=== PATIENT | female | born 1955 | race Caucasian/White ===

== ENCOUNTER → 2018-02-20 10:20 | Outpatient (CLI) | payer OTHER, SELFPAY ==
--- NOTE | 2018-02-20 10:22 | BI_ITS ---
MAMMOGRAPHY - BILATERAL SCREENING 3-D AYESHA SYNTHESIS REASON FOR EXAM: Female, 62 years old. Bilateral Screening 3-D tomosynthesis PERTINENT HISTORY: No significant family history. TECHNIQUE: 2-D mammograms and 3-D Ayesha synthesis of the breast (s) were performed. CAD was performed. COMPARISON: January 30, 2017. FINDINGS: The breast composition is heterogeneously dense that can obscure small breast masses. There is a subcentimeter nodular asymmetry within the superficial anterior outer left breast on the CC view positioned 4.3 cm from the nipple base. This finding probably lies within a region of density in the upper breast on the left MLO view. Recommend further evaluation with focal compression of the anterior left upper outer breast on CC and MLO views. Sonographic characterization may also be needed. BI/SCREENING MAMM (CAD), BILAT IMPRESSION: Left breast asymmetry as above. ASSESSMENT CATEGORY: BIRADS Category 0: Incomplete. Need additional imaging evaluation as above. A letter regarding these results will be sent to the patient by the facility within 30 days. FOLLOW UP RECOMMENDATION: Yearly follow up mammogram recommended. (A) Approximately 10% of breast cancers are not detected by mammography. A normal mammogram should not delay biopsy of a clinically suspicious abnormality. Electronically Signed: Jose Guadalupe Castillo MD at 13:57 EDT , Service support ,
== END ==
PROVIDERS: Family Provider Family Medicine; PCP Family Medicine; Visit Provider Family Medicine
DX: Z12.31 Encounter for screening mammogram for malignant neoplasm of breast (principal)
CPT/HCPCS: 77063; 77067

== ENCOUNTER → 2018-02-22 14:08 | Outpatient (CLI) | payer OTHER, SELFPAY ==
--- NOTE | 2018-02-22 14:10 | BI_ITS ---
Procedure: Mammographic focal compression of the left upper lateral breast on MLO and CC views. INDICATION: 1 cm, ovoid, hypoechoic nodule in the left breast 2:00 position 3 cm from the nipple identified on screening mammography performed February 20, 2018. TECHNIQUE: Digital mammography. Focal compression of the left upper outer breast on MLO and CC views. CAD was performed. FINDINGS: There is a 1 cm, well-circumscribed nodule within the left upper lateral breast. Sonographic characterization of this finding indicated a probably benign finding. BI/DIAG MAMM W/CAD, UNILAT IMPRESSION: Probably benign nodule in the left breast 2:00 position. ACR BIRADS assessment category 3-probably benign finding. Recommendation: 6 month short interval unilateral left breast mammographic and sonographic follow-up to document stability. Electronically Signed: Jose Guadalupe Castillo MD at 8:00 EDT , Service support ,
--- NOTE | 2018-02-22 14:11 | US_ITS ---
STUDY: ULTRASOUND BREAST - LEFT REASON FOR EXAM: Female, 62 years old. Abnormal screening mammography. Mammography performed February 20, 2018 demonstrating a subcentimeter nodule within the superficial/anterior upper lateral left breast. TECHNIQUE: Axial and longitudinal images of the LEFT breast were performed with a high resolution ultrasound transducer. COMPARISON: September 25, 2013. FINDINGS: LEFT Breast: There is a 0.7 x 1.0 x 0.5 cm, ovoid hypoechoic and isoechoic nodule in the left breast 2:00 position identified 3 cm from the nipple. There is no posterior enhancement. There is no posterior shadowing. This finding correlates with the mammographic finding. This finding is avascular. This finding is wider than it is tall. The margins appear microlobulated but distinct. US/Breast Limited Unilateral IMPRESSION: Probably benign finding within the left breast. ASSESSMENT CATEGORY: BIRADS Category 3: Probably Benign - Short-Interval Follow-up Suggested. A letter regarding these results will be sent to the patient by the facility within 30 days. Recommendation: Unilateral, left breast, six-month short interval mammographic and sonographic follow-up. Electronically Signed: Jose Guadalupe Castillo MD at 16:18 EDT , Service support ,
== END ==
PROVIDERS: Family Provider Family Medicine; PCP Family Medicine; Visit Provider Family Medicine
DX: R92.8 Other abnormal and inconclusive findings on diagnostic imaging of breast (principal)
CPT/HCPCS: 76642; 77065

== ENCOUNTER → 2018-06-25 16:16 | Outpatient (CLI) | payer MEDICARE, OTHER, SELFPAY | PROVIDERS: Family Provider Family Medicine; PCP Family Medicine; Visit Provider Family Medicine | DX: M25.561 Pain in right knee (principal) | CPT/HCPCS: 73564 ==

== ENCOUNTER 2018-10-28 11:47 | Observation (INO) | payer MEDICARE, OTHER, SELFPAY ==
[2018-10-28] VITALS (10 sets, daily range): BP systolic 138–207; BP diastolic 72–98; PULSE 64–89; RESP 14–18; TEMP 36.8–37.2; O2SAT 95–100; BMI 28.2; BMI 28.0
--- NOTE | 2018-10-28 12:26 | RAD_ITS ---
STUDY: X-RAY CHEST REASON FOR EXAM: Female, 63 years old. Dizziness. TECHNIQUE: Single frontal view of the chest. COMPARISON: 05/10/2017. FINDINGS: The lungs are clear and expanded. There is no demonstrated pleural abnormality. Normal size heart. Normal mediastinum and sri. Normal visualized pulmonary arteries. Normal visualized aortic arch and descending thoracic aorta. Normal visualized thoracic spine. Normal visualized ribs, clavicles, and shoulders. There is no demonstrated abnormality of the visualized soft tissue structures of the upper abdomen. RAD/Chest 1 View (Portable) IMPRESSION: Normal x-ray examination of the chest. Electronically Signed: See Desir MD at 14:21 EST , Service support ,
--- NOTE | 2018-10-28 12:26 | CT_ITS ---
STUDY: CT BRAIN WITHOUT CONTRAST REASON FOR EXAM: Female, 63 years old. Dizziness. Right facial numbness RADIATION DOSAGE (If Supplied By Facility): CTDIvol = ( 44.99 ) mGy, DLP = ( 762.36 ) mGycm TECHNIQUE: Transaxial CT imaging of the brain was performed without administration of intravenous contrast material. Individualized dose optimization techniques were used for this CT. COMPARISON: None. FINDINGS: Normal soft tissue structures. Normal calvarium. Normal size ventricles and extra-axial spaces for the patient's age. Normal white matter tracts of the cerebral hemispheres. Normal basal ganglia and thalami. Normal brainstem. Normal cerebellum. There is no intracranial hemorrhage. There are no findings of an acute ischemic infarction. Normal visualized paranasal sinuses. CT/Brain/Head without Contrast IMPRESSION: Normal unenhanced CT scan of the brain. Electronically Signed: See Desir MD at 14:35 EST , Service support ,
--- NOTE | 2018-10-28 12:26 | EKG12_ITS ---
Test Reason : DIZZINESS Blood Pressure : / mmHG Vent. Rate : 081 BPM Atrial Rate : 081 BPM P-R Int : 146 ms QRS Dur : 086 ms QT Int : 372 ms P-R-T Axes : 026 -46 019 degrees QTc Int : 432 ms Normal sinus rhythm Left axis deviation Poor R wave progression Abnormal ECG Confirmed by RED TORRES, DEIRDRE ([id number]), deputy editor in chief TOD ARRIAGA ([id number]) on 10/31/2018 2:27:04 PM Referred By: MARY Confirmed By:DEIRDRE MOON MD
[2018-10-28 12:42] LABS: Absolute Lymphocyte Count 2.09 X10^3/ul (0.83-4.51); Absolute Neutrophil Count 3.2 X10^3/uL (2.0-7.7); Basophil# 0.03 X10^3/uL; Basophil% 0.5 % (0-1); Eosinophil# 0.25 X10^3/uL; Eosinophils% 4.2 % (0-5); Hemoglobin 13.5 g/dl (12.0-15.0); Lymphocyte # 2.09 X10^3/ul (4.0); Lymphocyte % 34.7 % (19-41); Mean Corp Hgb Conc 33.8 g/gl (32-36); Mean Corpuscular Hgb 32.9 pg (27.0-32.0); Mean Corpuscular Volume 97.6 fL (81-99); Mean Platelet Vol. 10.9 fl (6.2-12.0); Monocyte% 6.6 % (0-10); Neutrophil # 3.23 X10^3/uL (2.7-7.7); Neutrophil % 53.7 % (47-70); POSITIVE COUNT NO; POSITIVE DIFFERENTIAL NO; POSITIVE MORPHOLOGY NO; Platelet Count 230 K/mm3 (150-450); RBC Distribution Width CV 11.9 % (11.6-14.6); RBC Distribution Width SD 41.4 fl (35.1-43.9)
[2018-10-28 12:50] LABS: ALB/GLOB Ratio 1.4 RATIO (0.9-2.4); AST(SGOT) 24 U/L (15-37); Alanine Aminotransfer ALT/SGPT 36 U/L (13-56); Albumin, Serum 4.4 g/dL (3.2-5.0); Alkaline Phosphatase 81 U/L (45-117); Anion Gap 9 (5-15); BUN 22 mg/dL (7-18); BUN/Creat Ratio 35.9 RATIO (10-20); Chloride 106 mmol/L (98-107); Creatinine, Serum 0.61 mg/dL (0.55-1.02); EST Glomerular Filtration Rate 104 mL/min (>60); Est Glom Filt Rate - Afr Amer 126 mL/min (>60); Estimated Creatinine Clearance 82.74 ml/min; Globulin 3.1 g/dL (2.2-4.2); Glucose 97 mg/dL (74-106); Potassium 3.4 mmol/L (3.5-5.1); Protein, Total 7.5 g/dL (6.4-8.2); Sodium Level 139 mmol/L (136-145)
--- NOTE | 2018-10-28 13:58 | ED.DCSUM_ITS ---
- ER Visit Summary Date of Service: 10/28/18 Chief Complaint: Dizziness, face numbness History of Present Illness: The patient is a 63 F with dizziness that she describes of just being off and somewhat off balance that started while she was in congregation now she feels numb in the right side of the face. No weakness, no vision changes no speech difficulties. No obvious vertigo. She does not feel lightheaded. Physical Examination: Not appear in acute distress. Moist mucous membranes, no obvious facial deformity No C-spine tenderness supple neck. Regular rate and rhythm without any obvious murmurs Clear lungs bilaterally speaking in full sentences without any obvious respiratory distress Abdomen soft and nontender no guarding or rebound Moves all extremities without any difficulty or pain. Skin does not show any obvious rashes or lesions, no trauma. Alert oriented ?3. She does have subjective decreased sensation of the right side of the face. She has no facial droop. Otherwise cranial nerves are intact. NIH stroke scale is 1 for sensory deficit. No cerebellar abnormalities on exam Emergency Department Course and Treatment: Patient has dizziness which is nonspecific however she does have some sensory deficit of the face, because of this NIH stroke scale is 1. Patient's ABCD 2 score is 4, therefore I will admit for further neurological diagnostic test. Admit stable condition. Disposition: Admitted in stable condition Impression: TIA This note was generated with [employer] dictation software. It may contain incorrect words, spelling, and punctuation that were not noted in review of the chart prior to signing ED Disposition - Plan for ED Patient: Chief Complaint: Dizziness Referrals: Silvano Mathews MD [Primary Care Provider] -
--- NOTE | 2018-10-28 15:37 | PCM.HP.STD ---
Problem List (1) Hypertensive urgency Status: Acute (2) TIA (transient ischemic attack) Status: Acute (3) Hypertension Status: Chronic History of Present Illness Date of Admission: 10/28/18 Chief Complaint: Dizziness, right face tingling. The patient is a 63 year old F with past medical history as mentioned above presented to the emergency room because of dizziness and right facial numbness and tingling. This morning, she was at spiritism, felt dizzy and lightheaded and she went home. After she arrived at home, she started having numbness on the right side of her face, continued to be dizzy, associated with nausea and headache, and without aggravating or relieving factors. Headache described as throbbing headache, in the occipital region, associated with nausea and without aggravating or relieving factors. She denied blurred vision or slurred speech. She denied focal arm or leg weakness. She denied chest pain or shortness of breath. In the emergency department, her blood pressure was highly elevated, maximum was 207/98, other vital signs are stable. Blood pressure came down to around 170 systolic without treatment. Her routine blood work was remarkable for potassium of 3.4, otherwise normal. LFT was normal. EKG revealed sinus rhythm, normal [place] interval, normal QRS, normal QTC and no evidence of acute ischemic changes. Troponin was negative. Chest x-ray showed no acute findings. CT scan brain showed no acute infarct or hemorrhage. She is being admitted for TIA and hypertensive urgency. Past Medical History Past Medical History (Chronic Problems): Chronic Problems Hypertension (Chronic) Allergies Iodinated Contrast- Oral and IV Dye [Iodinated Contrast Media - IV Dye] Allergy (Verified 10/28/18 11:51) Hives Penicillins Allergy (Verified 10/28/18 11:51) Hives Home Medications: Ambulatory Orders Medication Instructions Recorded Lisinopril [Zestril] 5 mg PO DAILY 11/04/13 Multivitamins,Therapeutic 1 tablet PO DAILY 11/04/13 [Multivitamin] Cholecalciferol (Vitamin D3) 2,000 unit PO DAILY 10/28/18 [Vitamin D3] Naproxen [Naprosyn] 500 mg PO DAILY 10/28/18 Surgical History: hysterectomy, - - D&C. Psychiatric History: No pertinent psych hx [employer] History: No pertinent [employer] history Lives: Spouse/ Significant Other Smoking Status: Never smoker Alcohol: Occasional Drugs: None - *Family History Maternal History Items: No pertinent history Paternal History Items: No pertinent history Review of Systems Constitutional: Denies: Anorexia, Chills, Fever, Weakness Eyes: Denies: Blurred vision, Double vision, Drainage, Redness HEENT: Denies: Difficulty Hearing, Ear Pain, Eye Pain, Nasal Congestion, Sore Throat Cardiovascular: Reports: Light Headedness. Denies: Chest Pain, Chest Pressure, Chest Tightness, Palpitations, Syncope Respiratory: Denies: Cough, Pleuritic Pain, Shortness of Breath, Sputum production, Wheezing Gastrointestinal: Reports: Nausea. Denies: Abdominal Pain, Constipation, Diarrhea, Vomiting Genitourinary: Denies: Dysuria, Frequency, Hematuria Musculoskeletal: Denies: Arm Pain, Back Pain, Foot Pain Skin: Denies: Dryness, Rash Neurological: Reports: Headaches, Numbness, Tingling. Denies: Balance problems, Blurred vision, Change in Speech, Slurred speech, Confusion, Focal weakness Psychiatric: Denies: Anxiety, Depression Endocrine: Denies: Change in Body Habitus, Polydipsia VTE Information - Inpt Only VTE Present on Admission: No VTE Mechan Device Prophylaxis: None VTE Pharm Prophylaxis ordered?: Yes Patient Problems: Active and Suspected Problems Hypertensive urgency (Acute) TIA (transient ischemic attack) (Acute) - Physical Exam General: Alert, Oriented x3, Cooperative, No apparent distress HEENT: Atraumatic, PERRLA, EOMI, Normocephalic Oral: Moist Mucosa, No Gingival or Mucosal Lesions/ Ulcerations Neck: Supple, No JVD, Trachea Midline, Thyroid Normal Size and Texture Lungs: Clear to auscultation, Normal air movement, No rhonchi, No wheeze, No rales Cardiovascular: Regular rate, Regular Rhythm, Normal S1, Normal S2, No murmurs, PMI Normal Abdomen: Bowel Sounds Present, Soft, Non Tender, Non-Distended, No Hepato-splenomegaly Extremities: No clubbing, No cyanosis, No edema Skin: No rashes, No breakdown Lymphatic: No Cervical, Supraclavicular, or Inguinal Adenopathy Neurological: Cranial nerves II-XII grossly intact, Motor Exam 5/5 strength throughout, Sensory exam intact to light touch and pain Psych/Mental Status: Normal Affect, Appropriate, Alert and oriented to time, place, person, mood and affect Vital Signs Temp Pulse Resp BP Pulse Ox 98.3 F 75 15 185/89 H 95 10/28/18 11:48 10/28/18 15:29 10/28/18 15:29 10/28/18 15:29 10/28/18 13:53 Oxygen Delivery Method Room Air Weight: 169 lb 12.095 oz Body Mass Index (BMI) 28.2 Laboratory Tests Past 24 Hrs 10/28/18 10/28/18 11:54 11:54 WBC 6.0 RBC 4.10 L Hgb 13.5 Hct 40.0 MCV 97.6 MCH 32.9 H MCHC 33.8 RDW 11.9 RDW Differential 41.4 Plt Count 230 MPV 10.9 Immature Gran % (Auto) 0.300 Neut % (Auto) 53.7 Lymph % (Auto) 34.7 [place] % (Auto) 6.6 Eos % (Auto) 4.2 Baso % (Auto) 0.5 Absolute Neuts (auto) 3.2 Absolute Lymphs (auto) 2.09 Total Counted Not Reportable Sodium 139 Potassium 3.4 L Chloride 106 Carbon Dioxide 24.0 Anion Gap 9 BUN 22 H Creatinine 0.61 Estim Creat Clear Calc 82.74 Est GFR (MDRD) Af Amer 126 Est GFR (MDRD) Non-Af 104 BUN/Creatinine Ratio 35.9 H Glucose 97 Calcium 9.0 Total Bilirubin 0.50 AST 24 ALT 36 Alkaline Phosphatase 81 Troponin I < 0.015 Total Protein 7.5 Albumin 4.4 Globulin 3.1 Albumin/Globulin Ratio 1.4 Clinical Impression(s) from Imaging Studies Brain CT 10/28/18 12:26 IMPRESSION: Normal unenhanced CT scan of the brain. Electronically Signed: eSe Desir MD at 14:35 EST , Service support , Chest X-Ray 10/28/18 12:26 IMPRESSION: Normal x-ray examination of the chest. Electronically Signed: See Desir MD at 14:21 EST , Service support , Assessment/Plan All Active Problems Hypertensive urgency (Acute) TIA (transient ischemic attack) (Acute) This is a 63 years old female patient presented to the ED because of dizziness and right facial numbness and tingling and she is being admitted for TIA as well as hypertensive urgency. #1 right facial paresthesia/dizziness/TIA: Initial CT scan brain showed no acute infarct or hemorrhage. She has no focal deficit on physical exam. Blood pressure is elevated. EKG revealed normal sinus rhythm, no cardiac arrhythmias or acute ischemic changes. Plan: Admit to PCU for observation, cardiac monitoring, NIH stroke scale, MRI brain, 2D echocardiogram, bilateral carotid Doppler, fasting lipid profile, start baby aspirin, Lipitor, goal blood pressure is around 160/90, Tylenol as needed, K Dur 60 mg x1 for slightly low potassium, PT OT evaluation and treatment. #2 hypertensive urgency: Upon arrival to ER, blood pressure was 207/98. Came down to around 170 systolic without treatment. Patient states that usually, her blood pressure under control. More than 10 years ago, she was informed that she has mild renal artery stenosis but she underwent for further workup and she was informed that she does not have renal artery stenosis. Plan: Goal blood pressure is around 160/90, increase lisinopril to 20 mg p.o. daily, start IV hydralazine as needed. #3 hypertension: Plan as above, increase lisinopril to 20 mg p.o. daily, IV hydralazine as needed. #4 DVT prophylaxis: Subcu Lovenox. This note was generated with [employer] dictation software. It may contain incorrect words, spelling, and punctuation that were not noted in checking the note before signing. Code Visit OBSV E&M: 94449 Initial observation care L3
--- NOTE | 2018-10-28 15:41 | HP.PCM_ITS ---
Problem List (1) Hypertensive urgency Status: Acute (2) TIA (transient ischemic attack) Status: Acute (3) Hypertension Status: Chronic History of Present Illness Date of Admission: 10/28/18 Chief Complaint: Dizziness, right face tingling. The patient is a 63 year old F with past medical history as mentioned above presented to the emergency room because of dizziness and right facial numbness and tingling. This morning, she was at judaism, felt dizzy and lightheaded and she went home. After she arrived at home, she started having numbness on the right side of her face, continued to be dizzy, associated with nausea and headache, and without aggravating or relieving factors. Headache described as throbbing headache, in the occipital region, associated with nausea and without aggravating or relieving factors. She denied blurred vision or slurred speech. She denied focal arm or leg weakness. She denied chest pain or shortness of breath. In the emergency department, her blood pressure was highly elevated, maximum was 207/98, other vital signs are stable. Blood pressure came down to around 170 systolic without treatment. Her routine blood work was remarkable for potassium of 3.4, otherwise normal. LFT was normal. EKG revealed sinus rhythm, normal [place] interval, normal QRS, normal QTC and no evidence of acute ischemic changes. Troponin was negative. Chest x-ray showed no acute findings. CT scan brain showed no acute infarct or hemorrhage. She is being admitted for TIA and hypertensive urgency. Past Medical History Past Medical History (Chronic Problems): Chronic Problems Hypertension (Chronic) Allergies Iodinated Contrast- Oral and IV Dye [Iodinated Contrast Media - IV Dye] Allergy (Verified 10/28/18 11:51) Hives Penicillins Allergy (Verified 10/28/18 11:51) Hives Home Medications: Ambulatory Orders Medication Instructions Recorded Lisinopril [Zestril] 5 mg PO DAILY 11/04/13 Multivitamins,Therapeutic 1 tablet PO DAILY 11/04/13 [Multivitamin] Cholecalciferol (Vitamin D3) 2,000 unit PO DAILY 10/28/18 [Vitamin D3] Naproxen [Naprosyn] 500 mg PO DAILY 10/28/18 Surgical History: hysterectomy, - - D&C. Psychiatric History: No pertinent psych hx LONG TERM ACUTE CARE REGISTERED NURSE History: No pertinent LONG TERM ACUTE CARE REGISTERED NURSE history Lives: Spouse/ Significant Other Smoking Status: Never smoker Alcohol: Occasional Drugs: None - *Family History Maternal History Items: No pertinent history Paternal History Items: No pertinent history Review of Systems Constitutional: Denies: Anorexia, Chills, Fever, Weakness Eyes: Denies: Blurred vision, Double vision, Drainage, Redness HEENT: Denies: Difficulty Hearing, Ear Pain, Eye Pain, Nasal Congestion, Sore Throat Cardiovascular: Reports: Light Headedness. Denies: Chest Pain, Chest Pressure, Chest Tightness, Palpitations, Syncope Respiratory: Denies: Cough, Pleuritic Pain, Shortness of Breath, Sputum production, Wheezing Gastrointestinal: Reports: Nausea. Denies: Abdominal Pain, Constipation, Diarrhea, Vomiting Genitourinary: Denies: Dysuria, Frequency, Hematuria Musculoskeletal: Denies: Arm Pain, Back Pain, Foot Pain Skin: Denies: Dryness, Rash Neurological: Reports: Headaches, Numbness, Tingling. Denies: Balance problems, Blurred vision, Change in Speech, Slurred speech, Confusion, Focal weakness Psychiatric: Denies: Anxiety, Depression Endocrine: Denies: Change in Body Habitus, Polydipsia VTE Information - Inpt Only VTE Present on Admission: No VTE Mechan Device Prophylaxis: None VTE Pharm Prophylaxis ordered?: Yes Patient Problems: Active and Suspected Problems Hypertensive urgency (Acute) TIA (transient ischemic attack) (Acute) - Physical Exam General: Alert, Oriented x3, Cooperative, No apparent distress HEENT: Atraumatic, PERRLA, EOMI, Normocephalic Oral: Moist Mucosa, No Gingival or Mucosal Lesions/ Ulcerations Neck: Supple, No JVD, Trachea Midline, Thyroid Normal Size and Texture Lungs: Clear to auscultation, Normal air movement, No rhonchi, No wheeze, No rales Cardiovascular: Regular rate, Regular Rhythm, Normal S1, Normal S2, No murmurs, PMI Normal Abdomen: Bowel Sounds Present, Soft, Non Tender, Non-Distended, No Hepato- splenomegaly Extremities: No clubbing, No cyanosis, No edema Skin: No rashes, No breakdown Lymphatic: No Cervical, Supraclavicular, or Inguinal Adenopathy Neurological: Cranial nerves II-XII grossly intact, Motor Exam 5/5 strength throughout, Sensory exam intact to light touch and pain Psych/Mental Status: Normal Affect, Appropriate, Alert and oriented to time, place, person, mood and affect Vital Signs Temp Pulse Resp BP Pulse Ox 98.3 F 75 15 185/89 H 95 10/28/18 11:48 10/28/18 15:29 10/28/18 15:29 10/28/18 15:29 10/28/18 13:53 Oxygen Delivery Method Room Air Weight: 169 lb 12.095 oz Body Mass Index (BMI) 28.2 Laboratory Tests Past 24 Hrs 10/28/18 10/28/18 11:54 11:54 WBC 6.0 RBC 4.10 L Hgb 13.5 Hct 40.0 MCV 97.6 MCH 32.9 H MCHC 33.8 RDW 11.9 RDW Differential 41.4 Plt Count 230 MPV 10.9 Immature Gran % (Auto) 0.300 Neut % (Auto) 53.7 Lymph % (Auto) 34.7 [place] % (Auto) 6.6 Eos % (Auto) 4.2 Baso % (Auto) 0.5 Absolute Neuts (auto) 3.2 Absolute Lymphs (auto) 2.09 Total Counted Not Reportable Sodium 139 Potassium 3.4 L Chloride 106 Carbon Dioxide 24.0 Anion Gap 9 BUN 22 H Creatinine 0.61 Estim Creat Clear Calc 82.74 Est GFR (MDRD) Af Amer 126 Est GFR (MDRD) Non-Af 104 BUN/Creatinine Ratio 35.9 H Glucose 97 Calcium 9.0 Total Bilirubin 0.50 AST 24 ALT 36 Alkaline Phosphatase 81 Troponin I < 0.015 Total Protein 7.5 Albumin 4.4 Globulin 3.1 Albumin/Globulin Ratio 1.4 Clinical Impression(s) from Imaging Studies Brain CT 10/28/18 12:26 IMPRESSION: Normal unenhanced CT scan of the brain. Electronically Signed: See Desir MD at 14:35 EST , Service support , Chest X-Ray 10/28/18 12:26 IMPRESSION: Normal x-ray examination of the chest. Electronically Signed: See Desir MD at 14:21 EST , Service support , Assessment/Plan All Active Problems Hypertensive urgency (Acute) TIA (transient ischemic attack) (Acute) This is a 63 years old female patient presented to the ED because of dizziness and right facial numbness and tingling and she is being admitted for TIA as well as hypertensive urgency. #1 right facial paresthesia/dizziness/TIA: Initial CT scan brain showed no acute infarct or hemorrhage. She has no focal deficit on physical exam. Blood pressure is elevated. EKG revealed normal sinus rhythm, no cardiac arrhythmias or acute ischemic changes. Plan: Admit to PCU for observation, cardiac monitoring, NIH stroke scale, MRI brain, 2D echocardiogram, bilateral carotid Doppler, fasting lipid profile, start baby aspirin, Lipitor, goal blood pressure is around 160/90, Tylenol as needed, K Dur 60 mg x1 for slightly low potassium, PT OT evaluation and treatment. #2 hypertensive urgency: Upon arrival to ER, blood pressure was 207/98. Came down to around 170 systolic without treatment. Patient states that usually, her blood pressure under control. More than 10 years ago, she was informed that she has mild renal artery stenosis but she underwent for further workup and she was informed that she does not have renal artery stenosis. Plan: Goal blood pressure is around 160/90, increase lisinopril to 20 mg p.o. daily, start IV hydralazine as needed. #3 hypertension: Plan as above, increase lisinopril to 20 mg p.o. daily, IV hydralazine as needed. #4 DVT prophylaxis: Subcu Lovenox. This note was generated with [employer] dictation software. It may contain incorrect words, spelling, and punctuation that were not noted in checking the note before signing. Code Visit OBSV E&M: 31789 Initial observation care L3
--- NOTE | 2018-10-28 16:35 | CDU_ITS ---
Reason For Study: TIA Rt. Velocities/BP Lt. Velocities/BP Prox CCA 83/13 cm/sec. Prox CCA 97/21 cm/sec. Mid CCA 76/17 cm/sec. Mid CCA 94/19 cm/sec. Dist CCA 71/17 cm/sec. Dist CCA 90/18 cm/sec. Prox ICA 59/19 cm/sec. Prox ICA 76/20 cm/sec. Mid ICA 93/26 cm/sec. Mid ICA 87/26 cm/sec. Dist ICA 89/24 cm/sec. Dist ICA 72/21 cm/sec. Rt. ICA/CCA = 1.22. Lt. ICA/CCA = 0.93. Prox ECA 99/8 cm/sec. Prox ECA 174/14 cm/sec. Rt. Vert. 59/17 cm/sec. Lt. Vert. 70/12 cm/sec. Right Extracranial There is intimal thickening but no significant atherosclerotic plaque noted in the right common carotid artery. There is heterogeneous, irregular atherosclerotic plaque noted in the right internal carotid artery. There is intimal thickening but no significant atherosclerotic plaque noted in the right external carotid artery. Antegrade flow is noted in the right vertebral artery. Left Extracranial There is heterogeneous, irregular atherosclerotic plaque noted in the left common carotid artery. There is heterogeneous, smooth atherosclerotic plaque noted in the left internal carotid artery. There is intimal thickening but no significant atherosclerotic plaque noted in the left external carotid artery. Antegrade flow is noted in the left vertebral artery. Procedure Carotid Duplex 22100. Exam performed portable in patient room. 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 Moderate disease left external carotid Patent and antegrade vertebrals bilaterally Ordering Physician: Ashelfah, Ghasem Referring Physician: Jorgito Mathews Performed By: Cande Stewart, PAULA, RVT
--- NOTE | 2018-10-28 16:35 | MRI_ITS ---
STUDY: MRI BRAIN WITHOUT CONTRAST REASON FOR EXAM: Female, 63 years old. Dizziness. Right facial numbness and tingling. TECHNIQUE: Standardized multiplanar fat and water weighted pulse sequences were obtained. COMPARISON: CT head without contrast 10/28/2018. FINDINGS: Normal size of the ventricles and extra-axial spaces for the patient's age. Normal white matter tracts of the supratentorial brain. Normal bilateral basal ganglia. Normal thalami. There is no extra-axial fluid accumulation. Normal flow voids within the major intracranial circulation suggesting patency by spin echo criteria. Normal sella turcica, pituitary gland, infundibular stalk, optic chiasm and hypothalamus. Normal tectal plate and pineal gland. Normal midbrain, roxane and medulla. Normal cerebellum. Normal basal cisterns. Normal bilateral temporal bones. Normal bilateral internal auditory canals. No demonstrated orbital abnormality, within the constraints of a routine brain study. Normal visualized paranasal sinuses. Normal calvarium and skull base. Normal visualized soft tissue structures. Normal visualized upper cervical spine. MRI/Brain without Contrast IMPRESSION: Normal unenhanced MRI of the brain. Electronically Signed: Suraj Conroy MD at 9:02 EST , Service support ,
--- NOTE | 2018-10-28 16:35 | ECHOD_ITS ---
Reason For Study: TIA/CVA Procedure This was a 2D Doppler, Color Flow transthoracic echocardiogram. The exam was of adequate technical quality. Exam performed portable in patient room. Left Ventricle Normal LV size. Left ventricular systolic function is normal. The estimated ejection fraction is 65 %. Diastolic function is indeterminate. No regional wall motion abnormalities noted. Right Ventricle Normal RV size. Normal systolic function. Atria Normal left atrium. Normal right atrium. No doppler evidence for ASD. Mitral Valve There is no mitral annular calcification. Normal mitral valve. Trivial mitral valve insufficiency. Tricuspid Valve Normal tricuspid valve. Trivial tricuspid valve insufficiency. Right ventricular systolic pressure estimated to be 26 mmHg. Aortic Valve Trisinus/trileaflet aortic valve. Normal aortic valve. Mild (1+) aortic valve insufficiency. Pulmonic Valve The pulmonic valve is not well visualized. Trivial pulmonic valve insufficiency. Great Vessels Normal sized aortic root. Pericardium/Pleural No pericardial effusion. Medication Performed a rapid injection of agitated mix of 9 cc saline and 1cc air to assess for atrial septal defect. MMode/2D Measurements & Calculations LVIDd: 4.1 cm IVSd: 0.98 cm Ao root diam: 3.3 cm LVIDs: 2.2 cm LVPWd: 0.82 cm LA dimension: 3.5 cm RVDd: 3.3 cm FS: 45.2 % LAV(MOD-bp): 61.3 ml LA A4 area: 17.5 cm2 RA A4 area: 14.4 cm2 LAV(MOD-bp) Indexed: 33.8 ml/m2 LAV(MOD-sp2): 57.2 ml LAV(MOD-sp4): 54.5 ml Time Measurements MV dec time: 0.20 sec Doppler Measurements & Calculations MV E max hoang: 70.6 cm/sec Lat Peak E' Hoang: 8.5 cm/sec Med Peak E' Hoang: 6.3 cm/sec MV A max hoang: 94.9 cm/sec E/E' lat: 8.3 E/E' med: 11.2 MV E/A: 0.74 MV V2 max: 115.6 cm/sec MV P1/2t max hoang: 94.4 cm/sec Ao V2 max: 119.9 cm/sec MV max P.3 mmHg MV P1/2t: 70.6 msec Ao max P.8 mmHg MV V2 mean: 55.1 cm/sec MV dec slope: 391.6 cm/sec2 MV mean P.5 mmHg MV V2 VTI: 27.9 cm MVA(P1/2t): 3.1 cm2 AI max hoang: 489.8 cm/sec LV V1 max: 118.4 cm/sec PA V2 max: 66.4 cm/sec AI max P.0 mmHg LV V1 max P.6 mmHg AI dec slope: 302.0 cm/sec2 AI P1/2t: 475.1 msec PI dec slope: 90.4 cm/sec2 TR max hoang: 239.3 cm/sec TR max P.9 mmHg Interpretation Summary Left ventricular systolic function is normal. The estimated ejection fraction is 65 %. Trivial mitral valve insufficiency. Trivial tricuspid valve insufficiency. Mild (1+) aortic valve insufficiency. Trivial pulmonic valve insufficiency. Right ventricular systolic pressure estimated to be 26 mmHg. Diastolic function is indeterminate. Ordering Physician: Norberto Stockton Referring Physician: Jorgito Mathews MD Performed By: Odilon Young RCS
[2018-10-28] MEDS: 0.9% Normal Saline 1,000 ML 75 ML IV (17:44)
[2018-10-28] MEDS: 0.9% NaCl Peripheral Flush Adult/Peds IV (17:48)
[2018-10-28] MEDS: Acetaminophen 325 MG Tablet 650 MG PO (18:48)
[2018-10-28] MEDS: Atorvastatin Calcium 80 MG Tablet PO (21:13)
[2018-10-29] VITALS (8 sets, daily range): BP systolic 104–141; BP diastolic 60–73; PULSE 57–93; RESP 14–18; TEMP 36.6–37; O2SAT 95–99; BMI 28.0
[2018-10-29 05:46] LABS: Cholesterol 237 mg/dL (200); High Density Lipoprotein 70 mg/dL; Triglycerides 124 mg/dL; Very Low Density Lipoprotein 25 mg/dL (5-40)
[2018-10-29] MEDS: Aspirin 81 MG TAB.CHEW PO (09:17)
[2018-10-29] MEDS: Lisinopril 20 MG Tablet PO (09:17)
[2018-10-29] MEDS: Enoxaparin 40 MG/0.4 ML Syringe SC (09:17)
[2018-10-29] MEDS: Acetaminophen 325 MG Tablet 650 MG PO (09:17)
--- NOTE | 2018-10-29 18:21 | DCINST_ITS ---
- Discharge Diagnoses Current Active Problems: Current Active and Chronic Problems Hypertensive urgency (Acute) TIA (transient ischemic attack) (Acute) You will use the following diet at home:: Cardiac - low fat, low salt Your food should be the consistency of: Regular Your liquids should be the consistency of: Regular/Thin Discharge Activity: Return to Normal Activity Call your doctor if you observe: Fever of 101 or Higher, Numbness or Tingling, Shortness of breath, Dizziness, Fainting spells, Chest pain, - - any unilateral numbness, weakness, trouble swallowing, Instructions: What Is a TIA?, Taking Aspirin for Atherosclerosis Additional Instructions: 1. You had a TIA. The MRI was negative for a stroke and the symptoms have completely resolved. The Ultrasound of the heart, called and Echocardiogram was normal. The heart monitor showed no abnormalities of rhythm. 2. You bad cholesterol, called LDL is 142. When you have had any kind of and ischemic event the recommendations are to keep the LDL < 70. You have been started on a lipid lowering agent called Lipitor. You will need to have a lipid panel and a liver panel rechecked in 6 weeks. If you develop severe muscle pain call Dr. Mathews for advice on stopping or continuing the Lipitor. 3. You should take aspirin 81 mg daily. This helps prevent the platelets in the blood from clumping and clogging up an artery. 4. The Lisinopril at admission was increased to 20 mg but, the BP normally goes up with a TIA or a stroke to help increase the blood flow to the brain. I do not think you need 20 mg but I did change the dose to 10 mg once daily. Allergies/Adverse Reactions: Allergies Iodinated Contrast- Oral and IV Dye [Iodinated Contrast Media - IV Dye] Allergy (Verified 10/28/18 11:51) Hives Penicillins Allergy (Verified 10/28/18 11:51) Hives Medications to take at Discharge Multivitamins,Therapeutic [Multivitamin] 1 tablet PO DAILY 11/04/13 Cholecalciferol (Vitamin D3) [Vitamin D3] 2,000 unit PO DAILY 10/28/18 Naproxen [Naprosyn] 500 mg PO DAILY 10/28/18 Aspirin [Aspirin, Baby] 81 mg PO DAILY@0800 tab.chew 10/29/18 Atorvastatin Calcium [Lipitor] 40 mg PO QHS #30 tablet 10/29/18 Lisinopril [Zestril] 10 mg PO DAILY #30 tab 10/29/18 The following prescriptions were given: Atorvastatin Calcium [Lipitor] 40 mg PO QHS #30 tablet Primary Care Physician: Silvano Mathews MD [Primary Care Provider] - Please follow up with your Primary Care Physician in: has an appt this week Test Results: Test results from this visit will be discussed in further detail at your follow- up appointment, if applicable. Proposed Discharge Date: 10/29/18
--- NOTE | 2018-10-29 18:24 | PCM.DC.SUM ---
Discharge Date and Diagnosis Date of Admission: 10/28/18 Date of Discharge: 10/29/18 - Primary Discharge Diagnosis Active and Suspected Problems TIA (transient ischemic attack) (Acute) Hypertensive urgency (Acute) vs autoregulation for cerebral ischemic event - Secondary Discharge Diagnosis Chronic Problems Hypertension (Chronic) Dyslipidemia Hospital Course and Treatment Imaging Results: Clinical Impression(s) from Imaging Studies Brain CT 10/28/18 12:26 IMPRESSION: Normal unenhanced CT scan of the brain. Electronically Signed: See Desir MD at 14:35 EST , Service support , Chest X-Ray 10/28/18 12:26 IMPRESSION: Normal x-ray examination of the chest. Electronically Signed: See Desir MD at 14:21 EST , Service support , Brain MRI 10/28/18 16:35 IMPRESSION: Normal unenhanced MRI of the brain. Electronically Signed: Suraj Conroy MD at 9:02 EST , Service support , Laboratory Tests 10/29/18 10/28/18 10/28/18 Range/Units 05:00 11:54 11:54 WBC 6.0 (4.4-11.0) K/mm3 RBC 4.10 L (4.2-5.4) M/mm3 Hgb 13.5 (12.0-15.0) g/dl Hct 40.0 (37-47) % MCV 97.6 (81-99) fL MCH 32.9 H (27.0-32.0) pg MCHC 33.8 (32-36) g/gl RDW 11.9 (11.6-14.6) % RDW Differential 41.4 (35.1-43.9) fl Plt Count 230 (150-450) K/mm3 MPV 10.9 (6.2-12.0) fl Immature Gran % (Auto) 0.300 (0.0-0.9) % Neut % (Auto) 53.7 (47-70) % Lymph % (Auto) 34.7 (19-41) % [place] % (Auto) 6.6 (0-10) % Eos % (Auto) 4.2 (0-5) % Baso % (Auto) 0.5 (0-1) % Absolute Neuts (auto) 3.2 (2.0-7.7) X10^3/uL Absolute Lymphs (auto) 2.09 (0.83-4.51) X10^3/ul Total Counted Not Reportable Sodium 139 (136-145) mmol/L Potassium 3.4 L (3.5-5.1) mmol/L Chloride 106 (98-107) mmol/L Carbon Dioxide 24.0 (21.0-32.0) mmol/L Anion Gap 9 (5-15) BUN 22 H (7-18) mg/dL Creatinine 0.61 (0.55-1.02) mg/dL Estim Creat Clear Calc 82.74 ml/min Est GFR (MDRD) Af Amer 126 (>60) mL/min Est GFR (MDRD) Non-Af 104 (>60) mL/min BUN/Creatinine Ratio 35.9 H (10-20) RATIO Glucose 97 (74-106) mg/dL Calcium 9.0 (8.5-10.1) mg/dL Total Bilirubin 0.50 (0.20-1.00) mg/dL AST 24 (15-37) U/L ALT 36 (13-56) U/L Alkaline Phosphatase 81 (45-117) U/L Troponin I < 0.015 (<0.045) ng/mL Total Protein 7.5 (6.4-8.2) g/dL Albumin 4.4 (3.2-5.0) g/dL Globulin 3.1 (2.2-4.2) g/dL Albumin/Globulin Ratio 1.4 (0.9-2.4) RATIO Triglycerides 124 ( - 199) mg/dL Cholesterol 237 H (200) mg/dL LDL Cholesterol 142 H (0-130) mg/dL VLDL Cholesterol 25 (5-40) mg/dL HDL Cholesterol 70 (40 - ) mg/dL None Operations: None Procedures: 2-D Echocardiogram - Normal left ventricular systolic function with no wall motion abnormalities and an estimated ejection fraction of 65%. No significant valvular heart disease. Right ventricular systolic pressure was estimated to be 26 and diastolic function was indeterminate., - - Carotid ultrasound showed moderate plaque at the proximal right external carotid with minimal smooth plaque at the proximal right internal carotid with less than 50% stenosis. The left carotid bulb and proximal internal carotid on the left had less than 50% stenosis. There was moderate disease in the left external carotid and there was patent and antegrade vertebrals bilaterally. Summary of Care Provided: The patient is a 63 year old F with a PMH of hypertension who presented to the emergency department at [facility] on 10/28/2018 complaining of dizziness and right facial numbness and tingling. This was associated with nausea and headache. She denies any focal arm or leg weakness and had no slurred speech. She denied chest pain and shortness of breath. Blood pressure in the emergency room was markedly elevated at 207/98 but the other vital signs were unremarkable. Systolic blood pressure came down to 170 without treatment. Lab work was significant for potassium of 3.4 but was otherwise unremarkable. An EKG showed normal sinus rhythm with no evidence of acute ischemic changes. Troponin was within normal limits. Chest x-ray showed no acute findings. CT brain showed no acute infarct or hemorrhage. She was admitted for observation with a diagnosis of TIA and hypertensive urgency. MRI of the brain was normal. Carotid duplex showed moderate calcific plaque at the proximal right external carotid and minimal smooth plaque at the proximal right internal carotid with less than 50% stenosis. There was minimal calcific plaque with shadowing in the left carotid bulb and proximal internal carotid with less than 50% stenosis. There was moderate disease in the left external carotid artery. Vertebral arteries were patent and antegrade. Echocardiogram showed normal left ventricular systolic function with an estimated ejection fraction of 65%. There was no significant valvular heart disease in the right ventricular systolic pressure was estimated at 26. Monitoring on telemetry showed normal sinus rhythm with no significant ectopy and particularly no atrial fibrillation. Total cholesterol was 237 with an LDL of 142 and an HDL of 70. She was discharged home with a prescription for atorvastatin 40 mg nightly and will follow up with Dr. Vega in the office on 11/01/2018. PHYSICAL EXAM: GENERAL: alert, oriented X 3, Cooperative, NAD ORAL: moist mucosa, no mucosal lesions NECK: No JVD, supple, trachea midline LUNGS: CTA, symmetric chest expansion HEART: RRR, Normal S1 and S2, no rub, no gallop ABDOMEN: soft, NT, ND, BS present, no guarding with palpation EXTREMITIES: no edema, no cyanosis, no calf tenderness SKIN: No rashes, no breakdown NEUROLOGIC: no focal neurologic deficits PSYCH: appropriate, normal affect, pleasant This note was generated with [employer] dictation software. It may contain incorrect words, spelling, and punctuation that were not noted in checking the note before signing. - Physical Exam Vital Signs Temp Pulse Resp BP Pulse Ox 98.3 F 75 18 120/69 97 10/29/18 17:10 10/29/18 17:10 10/29/18 17:10 10/29/18 17:10 10/29/18 17:10 Oxygen Delivery Method Room Air Weight: 163 lb 5.8 oz Body Mass Index (BMI) 28.0 Intake and Output for Last 24 Hours 10/27/18 10/28/18 10/29/18 23:59 23:59 23:59 Intake Total 1096.1 / 1096.1 1390 / 1390 Balance 1096.1 / 1096.1 1390 / 1390 Laboratory Tests Past 24 Hrs 10/29/18 05:00 Triglycerides 124 Cholesterol 237 H LDL Cholesterol 142 H VLDL Cholesterol 25 HDL Cholesterol 70 Discharge Activity: Return to Normal Activity Call your doctor if you observe: Fever of 101 or Higher, Numbness or Tingling, Shortness of breath, Dizziness, Fainting spells, Chest pain, - - any unilateral numbness, weakness, trouble swallowing, Home Medications: Medications to take at Discharge Multivitamins,Therapeutic [Multivitamin] 1 tablet PO DAILY 11/04/13 Cholecalciferol (Vitamin D3) [Vitamin D3] 2,000 unit PO DAILY 10/28/18 Naproxen [Naprosyn] 500 mg PO DAILY 10/28/18 Aspirin [Aspirin, Baby] 81 mg PO DAILY@0800 tab.chew 10/29/18 Atorvastatin Calcium [Lipitor] 40 mg PO QHS #30 tablet 10/29/18 Lisinopril [Zestril] 10 mg PO DAILY #30 tab 10/29/18 Following Prescrptions Were Given to Patient: Atorvastatin Calcium [Lipitor] 40 mg PO QHS #30 tablet Primary Care Physician: Silvano Mathews MD [Primary Care Provider] - Please follow up with your Primary Care Physician in: has an appt this week Patient Instructions: What Is a TIA?, Taking Aspirin for Atherosclerosis Disposition: Home Minutes spent on discharge:: 30 Patient Condition:: Good Medical Necessity - Tobacco Use Smoking Status: Never smoker Meaningful Use Info Meaningful Use Diagnoses (Choose all that apply): None applicable Code Visit OBSV E&M: 66323 Observation care discharge
--- NOTE | 2018-10-29 18:29 | DS.PCM_ITS ---
Discharge Date and Diagnosis Date of Admission: 10/28/18 Date of Discharge: 10/29/18 - Primary Discharge Diagnosis Active and Suspected Problems TIA (transient ischemic attack) (Acute) Hypertensive urgency (Acute) vs autoregulation for cerebral ischemic event - Secondary Discharge Diagnosis Chronic Problems Hypertension (Chronic) Dyslipidemia Hospital Course and Treatment Imaging Results: Clinical Impression(s) from Imaging Studies Brain CT 10/28/18 12:26 IMPRESSION: Normal unenhanced CT scan of the brain. Electronically Signed: See Desir MD at 14:35 EST , Service support , Chest X-Ray 10/28/18 12:26 IMPRESSION: Normal x-ray examination of the chest. Electronically Signed: See Desir MD at 14:21 EST , Service support , Brain MRI 10/28/18 16:35 IMPRESSION: Normal unenhanced MRI of the brain. Electronically Signed: Suraj Conroy MD at 9:02 EST , Service support , Laboratory Tests 10/29/18 10/28/18 10/28/18 Range/Units 05:00 11:54 11:54 WBC 6.0 (4.4-11.0) K/mm3 RBC 4.10 L (4.2-5.4) M/mm3 Hgb 13.5 (12.0-15.0) g/dl Hct 40.0 (37-47) % MCV 97.6 (81-99) fL MCH 32.9 H (27.0-32.0) pg MCHC 33.8 (32-36) g/gl RDW 11.9 (11.6-14.6) % RDW Differential 41.4 (35.1-43.9) fl Plt Count 230 (150-450) K/mm3 MPV 10.9 (6.2-12.0) fl Immature Gran % (Auto) 0.300 (0.0-0.9) % Neut % (Auto) 53.7 (47-70) % Lymph % (Auto) 34.7 (19-41) % [place] % (Auto) 6.6 (0-10) % Eos % (Auto) 4.2 (0-5) % Baso % (Auto) 0.5 (0-1) % Absolute Neuts (auto) 3.2 (2.0-7.7) X10^3/uL Absolute Lymphs (auto) 2.09 (0.83-4.51) X10^3/ul Total Counted Not Reportable Sodium 139 (136-145) mmol/L Potassium 3.4 L (3.5-5.1) mmol/L Chloride 106 (98-107) mmol/L Carbon Dioxide 24.0 (21.0-32.0) mmol/L Anion Gap 9 (5-15) BUN 22 H (7-18) mg/dL Creatinine 0.61 (0.55-1.02) mg/dL Estim Creat Clear Calc 82.74 ml/min Est GFR (MDRD) Af Amer 126 (>60) mL/min Est GFR (MDRD) Non-Af 104 (>60) mL/min BUN/Creatinine Ratio 35.9 H (10-20) RATIO Glucose 97 (74-106) mg/dL Calcium 9.0 (8.5-10.1) mg/dL Total Bilirubin 0.50 (0.20-1.00) mg/dL AST 24 (15-37) U/L ALT 36 (13-56) U/L Alkaline Phosphatase 81 (45-117) U/L Troponin I < 0.015 (<0.045) ng/mL Total Protein 7.5 (6.4-8.2) g/dL Albumin 4.4 (3.2-5.0) g/dL Globulin 3.1 (2.2-4.2) g/dL Albumin/Globulin Ratio 1.4 (0.9-2.4) RATIO Triglycerides 124 ( - 199) mg/dL Cholesterol 237 H (200) mg/dL LDL Cholesterol 142 H (0-130) mg/dL VLDL Cholesterol 25 (5-40) mg/dL HDL Cholesterol 70 (40 - ) mg/dL None Operations: None Procedures: 2-D Echocardiogram - Normal left ventricular systolic function with no wall motion abnormalities and an estimated ejection fraction of 65%. No significant valvular heart disease. Right ventricular systolic pressure was estimated to be 26 and diastolic function was indeterminate., - - Carotid ultrasound showed moderate plaque at the proximal right external carotid with minimal smooth plaque at the proximal right internal carotid with less than 50% stenosis. The left carotid bulb and proximal internal carotid on the left had less than 50% stenosis. There was moderate disease in the left external carotid and there was patent and antegrade vertebrals bilaterally. Summary of Care Provided: The patient is a 63 year old F with a PMH of hypertension who presented to the emergency department at [facility] on 10/28/2018 complaining of dizziness and right facial numbness and tingling. This was associated with nausea and headache. She denies any focal arm or leg weakness and had no slurred speech. She denied chest pain and shortness of breath. Blood pressure in the emergency room was markedly elevated at 207/98 but the other vital signs were unremarkable. Systolic blood pressure came down to 170 without treatment. Lab work was significant for potassium of 3.4 but was otherwise unremarkable. An EKG showed normal sinus rhythm with no evidence of acute ischemic changes. Troponin was within normal limits. Chest x-ray showed no acute findings. CT brain showed no acute infarct or hemorrhage. She was admitted for observation with a diagnosis of TIA and hypertensive urgency. MRI of the brain was normal. Carotid duplex showed moderate calcific plaque at the proximal right external carotid and minimal smooth plaque at the proximal right internal carotid with less than 50% stenosis. There was minimal calcific plaque with shadowing in the left carotid bulb and proximal internal carotid with less than 50% stenosis. There was moderate disease in the left external carotid artery. Vertebral arteries were patent and antegrade. Echocardiogram showed normal left ventricular systolic function with an estimated ejection fraction of 65%. There was no significant valvular heart disease in the right ventricular systolic pressure was estimated at 26. Monitoring on telemetry showed normal sinus rhythm with no significant ectopy and particularly no atrial fibrillation. Total cholesterol was 237 with an LDL of 142 and an HDL of 70. She was discharged home with a prescription for atorvastatin 40 mg nightly and will follow up with Dr. Vega in the office on 11/01/2018. PHYSICAL EXAM: GENERAL: alert, oriented X 3, Cooperative, NAD ORAL: moist mucosa, no mucosal lesions NECK: No JVD, supple, trachea midline LUNGS: CTA, symmetric chest expansion HEART: RRR, Normal S1 and S2, no rub, no gallop ABDOMEN: soft, NT, ND, BS present, no guarding with palpation EXTREMITIES: no edema, no cyanosis, no calf tenderness SKIN: No rashes, no breakdown NEUROLOGIC: no focal neurologic deficits PSYCH: appropriate, normal affect, pleasant This note was generated with [employer] dictation software. It may contain incorrect words, spelling, and punctuation that were not noted in checking the note before signing. - Physical Exam Vital Signs Temp Pulse Resp BP Pulse Ox 98.3 F 75 18 120/69 97 10/29/18 17:10 10/29/18 17:10 10/29/18 17:10 10/29/18 17:10 10/29/18 17:10 Oxygen Delivery Method Room Air Weight: 163 lb 5.8 oz Body Mass Index (BMI) 28.0 Intake and Output for Last 24 Hours 10/27/18 10/28/18 10/29/18 23:59 23:59 23:59 Intake Total 1096.1 / 1096.1 1390 / 1390 Balance 1096.1 / 1096.1 1390 / 1390 Laboratory Tests Past 24 Hrs 10/29/18 05:00 Triglycerides 124 Cholesterol 237 H LDL Cholesterol 142 H VLDL Cholesterol 25 HDL Cholesterol 70 Discharge Activity: Return to Normal Activity Call your doctor if you observe: Fever of 101 or Higher, Numbness or Tingling, Shortness of breath, Dizziness, Fainting spells, Chest pain, - - any unilateral numbness, weakness, trouble swallowing, Home Medications: Medications to take at Discharge Multivitamins,Therapeutic [Multivitamin] 1 tablet PO DAILY 11/04/13 Cholecalciferol (Vitamin D3) [Vitamin D3] 2,000 unit PO DAILY 10/28/18 Naproxen [Naprosyn] 500 mg PO DAILY 10/28/18 Aspirin [Aspirin, Baby] 81 mg PO DAILY@0800 tab.chew 10/29/18 Atorvastatin Calcium [Lipitor] 40 mg PO QHS #30 tablet 10/29/18 Lisinopril [Zestril] 10 mg PO DAILY #30 tab 10/29/18 Following Prescrptions Were Given to Patient: Atorvastatin Calcium [Lipitor] 40 mg PO QHS #30 tablet Primary Care Physician: Silvano Mathews MD [Primary Care Provider] - Please follow up with your Primary Care Physician in: has an appt this week Patient Instructions: What Is a TIA?, Taking Aspirin for Atherosclerosis Disposition: Home Minutes spent on discharge:: 30 Patient Condition:: Good Medical Necessity - Tobacco Use Smoking Status: Never smoker Meaningful Use Info Meaningful Use Diagnoses (Choose all that apply): None applicable Code Visit OBSV E&M: 59975 Observation care discharge
== END 2018-10-29 18:23 | disposition home or self-care (01) ==
LOC: ED 12:44 → PCU 16:12
PROVIDERS: Admitting Provider Hospitalist; Emergency Provider Emergency Medicine; Family Provider Family Medicine; PCP Family Medicine; Visit Provider Internal Medicine
DX: G45.9 Transient cerebral ischemic attack, unspecified (principal); I10 Essential (primary) hypertension; E78.5 Hyperlipidemia, unspecified; R29.701 NIHSS score 1; Z79.899 Other long term (current) drug therapy; I08.3 Combined rheumatic disorders of mitral, aortic and tricuspid valves
CPT/HCPCS: 36415; 70450; 70551; 71045; 80053; 80061; 84484; 85025; 93005; 93306; 93880; 96360; 96361; 96372; 99218; 99283; J7030; A4216; G0378

== ENCOUNTER → 2018-12-17 09:36 | Outpatient (CLI) | payer MEDICARE, OTHER, SELFPAY ==
[2018-10-29 14:46] VITALS: BMI 28.0
[2018-12-17 12:56] LABS: Vitamin D,25 Hydroxy 23.3 ng/mL (29.95-100.01)
[2018-12-17 13:06] LABS: Anion Gap 11 (5-15); BUN 21 mg/dL (7-18); BUN/Creat Ratio 33.4 RATIO (10-20); Chloride 109 mmol/L (98-107); Cholesterol 138 mg/dL (200); Creatinine, Serum 0.63 mg/dL (0.55-1.02); EST Glomerular Filtration Rate 101 mL/min (>60); Est Glom Filt Rate - Afr Amer 122 mL/min (>60); Glucose 98 mg/dL (74-106); High Density Lipoprotein 73 mg/dL; Potassium 4.1 mmol/L (3.5-5.1); Sodium Level 142 mmol/L (136-145); Triglycerides 95 mg/dL; Very Low Density Lipoprotein 19 mg/dL (5-40)
== END ==
PROVIDERS: Family Provider Family Medicine; PCP Family Medicine; Visit Provider Family Medicine
DX: E78.5 Hyperlipidemia, unspecified (principal); E55.9 Vitamin D deficiency, unspecified
CPT/HCPCS: 36415; 80048; 80061; 82306

== ENCOUNTER → 2019-03-12 | Outpatient (CLI) | payer MEDICARE, OTHER, SELFPAY ==
[2018-10-29 14:46] VITALS: BMI 28.0
--- NOTE | 2019-03-12 15:30 | BI_ITS ---
MAMMOGRAPHY - BILATERAL SCREENING REASON FOR EXAM: Female, 63 years old. Routine annual screening examination. PERTINENT HISTORY: Non-contributory. TECHNIQUE: Digital bilateral breast jaimie (3D mammographic acquisition) in the CC and MLO projections. 2-D mediolateral oblique (MLO) and craniocaudad (CC) views of both breasts were obtained. CAD: Full Field Digital Mammography with Computer Added Detection was performed. COMPARISON: Comparison is made with prior study dated February 20, 2018 and January 30, 2017. FINDINGS: Breast Composition: The breasts are heterogeneously dense, which may obscure small masses. There are no dominant masses or suspicious calcifications. Stable 8.5 mm well-defined nodule in the anterior superior lateral aspect of the left breast. No other significant abnormalities are identified. There has been no significant change since the prior study. BI/SCREENING MAMM (CAD), BILAT IMPRESSION: Stable bilateral screening mammogram. Yearly follow-up mammogram recommended. (A) ASSESSMENT CATEGORY: BIRADS Category 2: Benign. A letter regarding these results will be sent to the patient by the facility within 30 days. Approximately 10% of breast cancers are not detected by mammography. A normal mammogram should not delay biopsy of a clinically suspicious abnormality. [id number] Electronically Signed: Chacho Jeffries, at 8:04 EDT , Service support ,
--- NOTE | 2019-03-12 15:31 | BD_ITS ---
STUDY: DUAL ENERGY X-RAY ABSORPTIOMETRY / DXA REASON FOR EXAM: Female, 63 years old. The patient is postmenopausal. Loss of height. TECHNIQUE: Bone Mineral Density (BMD) measurements of lumbar spine and bilateral hips were obtained. COMPARISON: Comparison is made with prior study dated November 29, 2016. FINDINGS: Lumbar Spine (L1-L4): g/cm2 (0.824) / T-score (-3.0) / Z-score (-1.4) Findings are suggestive of osteoporosis with a high fracture risk. Left Femur Total: g/cm2 (0.785) / T-score (-1.8) / Z-score (-0.5) Left Femoral Neck: g/cm2 (0.810) / T-score (-1.6) / Z-score (-0.1) Right Femur Total: g/cm2 (0.744) / T-score (-2.1) / Z-score (-0.9) Right Femoral Neck: g/cm2 (0.760) / T-score (-2.0) / Z-score (-0.5) The T-Scores on the most recent prior examination were: Lumbar Spine (L1-L4): There has been worsening of bone density since the previous examination. Left Femur Total: which represents a worsening of 1.3%. Right Femur Total: which represents a worsening of 2.4%. BD/Dexa Bone Density Study IMPRESSION: The patient is considered osteoporotic as outlined below according to World [employer] Organization (WHO) criteria with a high fracture risk. There has been worsening of bone density since the previous examination. Reference Information: The T-score is the number of standard deviations above or below the standard which is normal for young adults at their peak bone mineral density. The World Health Organization (WHO) interprets the T-scores as follows: Above -1 Normal bone density Between -1 and -2.5 Osteopenia Equal to / or below -2.5 Osteoporosis As a practical clinical guideline, osteopenia may be graded as follows: Mild -1 through -1.5 Moderate -1.6 through -2.0 Severe -2.1 through -2.4 The Z-score is the number of standard deviations above or below age-matched controls. A Z-score of less than -1.5 would be considered abnormal. References: 1. NIH Osteoporosis and Related Bone Diseases http://www.osteo.org 2. International Society for Clinical Densitometry http://www.iscd.org 3. National Osteoporosis Foundation http://www.nof.org Electronically Signed: Chacho Jeffries, at 8:21 EDT , Service support ,
== END | disposition home or self-care (01) ==
LOC: OPBD 15:28
PROVIDERS: Family Provider Family Medicine; PCP Family Medicine; Referring Provider Family Medicine; Visit Provider Family Medicine
DX: Z00.00 Encounter for general adult medical examination without abnormal findings (principal); Z12.31 Encounter for screening mammogram for malignant neoplasm of breast; Z78.0 Asymptomatic menopausal state
CPT/HCPCS: 77063; 77067; 77080

== ENCOUNTER → 2019-03-15 | Outpatient (CLI) | payer MEDICARE, OTHER, SELFPAY ==
[2018-10-29 14:46] VITALS: BMI 28.0
[2019-03-15 16:17] LABS: Anion Gap 6 (5-15); BUN 16 mg/dL (7-18); BUN/Creat Ratio 27.1 RATIO (10-20); Calcium,Total 9.1 mg/dL (8.5-10.1); Chloride 101 mmol/L (98-107); Creatinine, Serum 0.59 mg/dL (0.55-1.02); EST Glomerular Filtration Rate 108 mL/min (>60); Est Glom Filt Rate - Afr Amer 131 mL/min (>60); Glucose 86 mg/dL (74-106); Potassium 3.6 mmol/L (3.5-5.1); Sodium Level 134 mmol/L (136-145)
[2019-03-15 16:24] LABS: Vitamin D,25 Hydroxy 29.2 ng/mL (29.95-100.01)
[2019-03-15 16:25] LABS: PTHIN 54.4 pg/mL (18.4-80.1)
== END | disposition home or self-care (01) ==
LOC: MTLAB 13:34
PROVIDERS: Family Provider Family Medicine; PCP Family Medicine; Referring Provider Family Medicine; Visit Provider Family Medicine
DX: E55.9 Vitamin D deficiency, unspecified (principal)
CPT/HCPCS: 36415; 80048; 82306; 82330; 83970

== ENCOUNTER → 2020-03-13 09:58 | Outpatient (CLI) | payer MEDICARE, OTHER, SELFPAY ==
[2018-10-29 14:46] VITALS: BMI 28.0
--- NOTE | 2020-03-13 10:03 | BI_ITS ---
MAMMOGRAPHY - BILATERAL SCREENING REASON FOR EXAM: Female, 64 years old. Routine annual screening examination. PERTINENT HISTORY: Non-contributory. TECHNIQUE: Digital bilateral breast ayesha (3D mammographic acquisition) in the CC and MLO projections. 2-D mediolateral oblique (MLO) and craniocaudad (CC) views of both breasts were obtained. CAD: Full Field Digital Mammography with Computer Added Detection was performed. COMPARISON: Comparison is made with prior examination of March 12, 2019 and February 20, 2018. FINDINGS: Breast Composition: The breasts are heterogeneously dense, which may obscure small masses. There are no dominant masses or suspicious calcifications. Stable 8 mm well-defined nodule in the anterior superior lateral aspect of the left breast. Stable benign-appearing bilateral axillary lymph nodes. No other significant abnormalities are identified. There has been no significant change since the prior study. BI/SCREEN MAMM (CAD) W/AYESHA BILAT IMPRESSION: Stable bilateral screening mammogram. Yearly follow-up mammogram recommended. (A) ASSESSMENT CATEGORY: BIRADS Category 2: Benign. A letter regarding these results will be sent to the patient by the facility within 30 days. Approximately 10% of breast cancers are not detected by mammography. A normal mammogram should not delay biopsy of a clinically suspicious abnormality. [id number] Electronically Signed: Chacho Jeffries, at 10:59 EDT , Service support ,
== END ==
PROVIDERS: PCP Family Medicine; Referring Provider Family Medicine; Visit Provider Family Medicine
DX: Z12.31 Encounter for screening mammogram for malignant neoplasm of breast (principal)
CPT/HCPCS: 77063; 77067

== ENCOUNTER → 2020-05-04 08:24 | Outpatient (CLI) | payer MEDICARE, OTHER, SELFPAY ==
[2018-10-29 14:46] VITALS: BMI 28.0
[2020-05-04 13:21] LABS: Vitamin D,25 Hydroxy 43.6 ng/mL
[2020-05-04 13:51] LABS: Anion Gap 8 (5-15); BUN 16 mg/dL (7-18); BUN/Creat Ratio 27.8 RATIO (10-20); Calcium,Total 8.8 mg/dL (8.5-10.1); Chloride 108 mmol/L (98-107); Cholesterol 162 mg/dL (200); Creatinine, Serum 0.58 mg/dL (0.55-1.02); EST Glomerular Filtration Rate 111 mL/min (>60); Est Glom Filt Rate - Afr Amer 135 mL/min (>60); Glucose 88 mg/dL (74-106); High Density Lipoprotein 87 mg/dL; Potassium 4.2 mmol/L (3.5-5.1); Sodium Level 140 mmol/L (136-145); Thyroid Stim Hormone (TSH) 1.25 uIU/mL (0.358-3.74); Triglycerides 112 mg/dL; Very Low Density Lipoprotein 22 mg/dL (5-40)
== END ==
PROVIDERS: PCP Family Medicine; Visit Provider Family Medicine
DX: I10 Essential (primary) hypertension (principal); M81.0 Age-related osteoporosis without current pathological fracture
CPT/HCPCS: 36415; 80048; 80061; 82306; 84443

== ENCOUNTER → 2020-08-07 09:45 | Outpatient (CLI) | payer MEDICARE, OTHER, SELFPAY ==
[2018-10-29 14:46] VITALS: BMI 28.0
--- NOTE | 2020-08-14 14:25 | STRESSREP_ITS ---
Stress Test Report Date: 08/07/2020 Procedure: Exercise tolerance test Indications: Hypertension, family history Consent: Per the patient Procedure: The patient exercised on a Mario protocol for 6 minutes achieving a peak heart rate of 150 bpm (98% predicted maximal heart rate) with a peak blood pressure 214/80 mmHg and a peak MET capacity of approximately 7 MET's. The baseline ECG demonstrated sinus rhythm. The peak exercise ECG demonstrated sinus tachycardia with no significant ischemic changes. [There were no cardiac dysrhythmias pretest, during exercise, or recovery]. The functional capacity was considered normal for age. The patient had no complaint of chest discomfort during exercise or recovery. The examination was discontinued secondary to dyspnea. Impression: 1. Technically adequate (percent predicted maximal heart rate greater than 85%) exercise tolerance test 2. Stress test is negative for exercise-induced chest pain. 3. Stress test test is negative for exercise-induced EKG changes of ischemia. 4. Functional capacity is normal for age This note was generated with [employer] software. It may contain incorrect words, spelling, and punctuation that were not noted in checking the note before signing.
== END ==
PROVIDERS: PCP Family Medicine; Referring Provider Family Medicine; Visit Provider Family Medicine
DX: R07.9 Chest pain, unspecified (principal); I10 Essential (primary) hypertension
CPT/HCPCS: 93017